=== PATIENT | female | born 1995 | race Caucasian/White ===

== ENCOUNTER 2017-04-21 00:47 | Inpatient (IN) ==
[2017-04-21] MEDS ORDERED: levETIRAcetam 1,000 MG in 0.9 % Sodium Chloride 100 ML IVPB ONE (00:59)
[2017-04-21] MEDS ORDERED: 0.9 % Sodium Chloride 1,000 ML IVC ONE (00:59)
--- NOTE | 2017-04-21 01:03 | Emergency Department Note ---
Disposition Clinical Impression: Seizures, Jose's paralysis (postepileptic) Disposition: Admitted As Inpatient Condition: Undetermined Referrals: Andria Alvarado CNP [Primary Care Provider] - Forms: ED Satisfaction Letter Time of Disposition: 03:59 Neuro HPI - General Chief Complaint: ED Neuro Symptoms/Deficit Stated Complaint: right arm/leg sensation loss Time Seen by Provider: 04/21/17 00:52 Source: patient Mode of arrival: wheelchair Limitations: no limitations Nursing Notes Reviewed: Yes Vital Signs Reviewed: Yes - History of Present Illness HPI Narrative: 21-year-old female with history of seizures and previous right upper extremity numbness associated with the seizures arrives to [facility] emergency department after experiencing 2 seizures while watching a movie just prior to arrival. The patient's significant other states they were tonic in nature without any biting of tongue or urinating on herself. The patient's significant other states it lasted roughly 30 seconds to 2 minutes is unsure. The patient has had in the past and states that she has been experiencing right upper extremity numbness and tingling with seizures in the past but states that her right lower extremity is worse and it had been in the past. The patient denies any other complaints at this time other than right upper extremity and right lower extremity numbness, tingling and difficulty with movement. Patient denies any headache, fevers, chills, abdominal pain, or any other complaints at this time. Onset of Symptoms Date: 04/21/17 Location: right arm, right leg History of same: Yes Quality: weakness, numbness Symptoms Improving: Yes Improves with: time Worsens with: none Context: sudden onset (after seizure) On Anticoagulants: No Associated symptoms: Reports: denies other symptoms Treatments Prior to Arrival: none - Related Data Home Medications: Previous Rx's Medication Instructions Recorded Acetaminophen [Tylenol] 325 mg PO Q6HR PRN #10 tablet 07/01/15 Clindamycin [Cleocin] 150 mg PO Q6HR #8 capsule 12/03/15 Hydrocodone/Acetaminophen [[place] 1 tab PO Q6H PRN #20 tab 12/03/15 5-325 Tablet] Meloxicam [Mobic] 7.5 mg PO DAILY #15 tablet 03/07/16 traMADol [Ultram] 50 mg PO TID #6 tablet 03/31/16 Ciprofloxacin [Cipro] 500 mg PO BID #6 tablet 05/07/16 Azithromycin [Azithromycin 6-Tab 250 mg PO PER PKG DI #6 tab 06/05/16 Pack] Benzonatate [Tessalon] 100 mg PO TID #15 capsule 06/05/16 Ibuprofen [Motrin] 400 mg PO Q6HR #30 tablet 02/14/17 Allergies/Adverse Reactions: Allergies Allergy/AdvReac Type Severity Reaction Status Date / Time No Known Allergies Allergy Verified 04/09/17 22:47 All systems ED: reviewed and negative except as stated. Constitutional: Denies: fever, chills Eyes: Denies: vision change ENT ED: Denies: dental pain, hearing loss Cardiovascular: Denies: chest pain Respiratory: Denies: dyspnea Gastrointestinal: Denies: abdominal pain Genitourinary: Denies: urgency, dysuria Musculoskeletal: Denies: back pain, neck pain, arthralgia, myalgia Integumentary: Denies: rash, lesions Neurological: Reports: weakness, numbness, paresthesias. Denies: headache, confusion, vertigo Past Medical History - Past Medical History Attestation: Yes The following information was validated with the patient. 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 - Social History Smoking Status: Current every day smoker Smokeless Tobacco Status: No Alcohol use: Reports: none Drug use: Reports: none Physical Exam - General Limitations: no limitations General appearance: alert, in no apparent distress - Head Head exam: atraumatic, normocephalic, normal inspection - Eye Eye exam: Present: normal appearance, PERRL, EOMI - ENT ENT exam: normal exam, normal oropharynx, mucous membranes moist - Neck Neck exam: Present: normal inspection, full ROM, trachea midline - Chest Chest inspection: Present: normal inspection, symmetric chest wall rise - Respiratory Respiratory exam: Present: normal lung sounds bilaterally - Cardiovascular Cardiovascular exam: Present: regular rate, normal rhythm, normal heart sounds - Abdominal Exam Abdominal exam: Present: soft, Non-Tender. Absent: tenderness, distention, guarding, rebound, rigidity - Extremities Exam Extremities exam: Present: normal inspection. Absent: tenderness - Neurological Exam Neurological exam: Present: alert, oriented X3, CN II-XII intact - Expanded Neurological Exam Patient oriented to: Present: person, place, time Speech: Present: fluid speech Cranial nerves: EOM function (II, III, IV, ): Normal, facial sensation (V): Normal, facial palsy (VII): Normal Motor strength - LUE: 5/5 Motor strength - RUE: 1/5 Motor strength - LLE: 5/5 Motor strength - RLE: 1/5 Sensory exam upper extremity: light touch: Abnormal Right Sensory exam lower extremity: light touch: Abnormal Right Coma Scale Eye Opening: Spontaneous Coma Scale Motor Response: Obeys Commands Coma Scale Verbal Response: Oriented Coma Scale Total: 15 Course - Consultations Consultation #1: Spoke to Dr. Clemente in neurology who recommended that the patient receive an MRI and EEG inpatient. He will agree to consult. No further recommendations given time. Time: 02:38 Vital Signs Temperature 97.4 F L 04/21/17 00:48 Pulse Rate 70 04/21/17 00:48 Respiratory Rate 18 04/21/17 00:48 Blood Pressure 115/77 04/21/17 00:48 O2 Sat by Pulse Oximetry 97 04/21/17 00:48 Temperature 97.4 F L 04/21/17 00:48 Pulse Rate 69 04/21/17 03:32 Respiratory Rate 16 04/21/17 03:32 Blood Pressure 90/59 04/21/17 03:32 O2 Sat by Pulse Oximetry 97 04/21/17 03:32 Oxygen Delivery Oxygen Delivery Room Air Neuro Symptoms/Deficit - MDM Narrative Medical decision making narrative: Workup here in the emergency department demonstrates no acute process. The patient has now experienced 5 seizures since the episode started just prior to arrival. The patient has required 4 mg of IV Ativan. 1 g of Keppra loading dose was administered to the patient. We will admit the patient to the hospitalist for further workup and care. We will consult neurology with recommendations of inpatient MRI and EEG. The patient will be admitted to the hospitalist, accepted by Dr. Rosales. - Lab Data Lab results reviewed: Yes I reviewed the patient's lab results. Result diagrams: 04/21/17 01:05 04/21/17 01:05 Lab Results 04/21/17 04/21/17 Range/Units 01:05 01:05 WBC 10.6 (4.3-11.1) K/mcL RBC 4.60 (3.82-4.97) M/mcL Hgb 13.8 (11.5-15.4) g/dL Hct 41.2 (35.3-44.9) % MCV 89.6 (83.0-100.0) fL MCH 30.0 (28.0-33.3) pg MCHC 33.5 (31.6-35.5) g/dL RDW 12.3 (11.5-14.5) % Plt Count 302 (140-400) K/mcL MPV 9.7 (9.4-12.4) fL Immature Gran % 0.5 (0-4) % Seg Neutrophils % 57.8 % Lymphocytes % 28.7 % Monocytes % 10.2 % Eosinophils % 2.3 % Basophils % 0.5 % Neutrophils # 6.2 (1.6-8.9) K/mcL Lymphocytes # 3.1 (0.6-4.6) K/mcL Monocytes # 1.1 (0.0-1.3) K/mcL Eosinophils # 0.3 (0.0-0.6) K/mcL Basophils # 0.1 (0.0-0.2) K/mcL Sodium 138 (136-145) mEq/L Potassium 4.3 (3.5-4.5) mEq/L Chloride 105 (98-109) mEq/L Carbon Dioxide 26 (19-29) mEq/L BUN 15 (7-20) mg/dL Creatinine 0.72 (0.57-1.11) mg/dL Est GFR ( Amer) > 60 (> 60) Est GFR (Non-Af Amer) > 60 (> 60) BUN/Creatinine Ratio 21 (6-26) Glucose 90 (70-99) mg/dL Calculated Osmolality 286 (280-300) Calcium 9.7 (8.6-10.8) mg/dL - Radiology Data Radiology results reviewed: Yes I reviewed the patient's radiology results. TPA Checklist - LKW: 3-4.5 hrs Add. Warnings/Precautions Patient/family understanding: The patient/family members have been counseled and understood the risk, benefit , and alternatives of treatment.
--- NOTE | 2017-04-21 01:03 | Emergency Department Note ---
START Narrative - START START: I examined this patient and my medical decision-making was reviewed with the emergency medicine resident. I agree with the documented findings, disposition and treatment plan as described except to the extent set forth below. Patient seen with emergency medicine resident Dr. Adam Dominguez, Please see a copy of his note for details of the H&P, ED evaluation, management and disposition. I have independently evaluated the patient and confirmed appropriate portions of the history and physical exam. Briefly: 21 year old female who identifies as male presents with significant other for "seizure". Although no formal diagnosis has been made. Head CT is pending. As well as a loading dose of anticonvulsants. Disposition pending. Patient is currently awake and alert with some mild right-sided weakness likely Jose's paralysis.
[2017-04-21] MEDS ORDERED: *HR* LORazepam 2 MG/ML VIAL ONE ×3 (01:12→19:25)
[2017-04-21 01:13] LABS: Basophils # 0.1 K/mcL (0.0-0.2); Basophils % 0.5 %; Eosinophils # 0.3 K/mcL (0.0-0.6); Eosinophils % 2.3 %; Hematocrit 41.2 % (35.3-44.9); Hemoglobin 13.8 g/dL (11.5-15.4); Immature Granulocytes % 0.5 % (0-4); Lymphocytes # 3.1 K/mcL (0.6-4.6); Lymphocytes % 28.7 %; Mean Corpuscular HGB Conc 33.5 g/dL (31.6-35.5); Mean Corpuscular Volume 89.6 fL (83.0-100.0); Mean Platelet Volume 9.7 fL (9.4-12.4); Monocytes # 1.1 K/mcL (0.0-1.3); Monocytes % 10.2 %; Neutrophils # 6.2 K/mcL (1.6-8.9); Platelet Count 302 K/mcL (140-400); Red Cell Distribution Width 12.3 % (11.5-14.5); Segmented Neutrophils % 57.8 %
[2017-04-21] MEDS ORDERED: *HR* LORazepam 2 MG/ML VIAL IVP ONE ×4 (01:21→04:52)
[2017-04-21 01:27] LABS: BUN/Creatinine Ratio 21 (6-26); Blood Urea Nitrogen 15 mg/dL (7-20); Calcium 9.7 mg/dL (8.6-10.8); Carbon Dioxide 26 mEq/L (19-29); Chloride 105 mEq/L (98-109); Glucose 90 mg/dL (70-99); Osmolality,Calculated 286 (280-300); Potassium 4.3 mEq/L (3.5-4.5); Sodium 138 mEq/L (136-145); eGFR For African Americans > 60 (> 60); eGFR For Non-African Americans > 60 (> 60)
[2017-04-21] MEDS ORDERED: 0.9 % Sodium Chloride 1,000 ML ONE ×2 (04:59→05:08)
--- NOTE | 2017-04-21 05:00 | Internal Med History&Physical ---
Date of Encounter: 04/21/17 Time of Encounter: 05:00 Assessment and Plan (1) Seizures Current visit: Yes Status: Acute Patient with recurrent atypical seizures She describes an aura of generalized numbness prior to seizure activity No post-ictal state witnessed, although ER reports Jose's paralysis, she is moving all extremities during my review There was no tongue biting, no bowel or urinary incontinence Transfer to Partner at bedside is unable to provide much history, attempt to contact patient 's psychiatrist or PCP Hold Psych meds for now Brain MRI without contrast and EEG ordered Neurology eval, per ER, they had informed Dr. Clemente Obtain lactate, Prolactin Electrolytes are stable Obtain Urine toxicology NPO IVF Seizure precautions, Ativan prn yissel, RN instructed to inform MD as well. Due to high doses of ativan received, and risk of airway compromise, patient is high risk and should be transferred to , placed on telemetry Patient is protecting her airway at time of eval (2) Conversion disorder with abnormal movement Current visit: Yes Status: Suspected Suspected, as above Internal Medicine - H&P: HPI Chief complaint: Seizures Admitted From: Home Plans for Post Hospital Care: Home History of present illness: Ms. Kwan is a 21 year old female Patient is seen during rapid response call with her partner at the bedside She was just brought up the floor from the ER She is seizing during evaluation with rolling back of her eyes, tonic clonic movement of her R arm only. She immediately is awake just prior to receiving Ativan IV, and begins to make signs. Her partner is in the room with her. She states the patient is Female but identifies as a male. The partner is unable to state patient's medical history or home meds She states "she usually does the sign language immediately after a seizure". Patient eventually starts speaking and states she has had seizures that has never been worked up When asked about social history, patient denies illicit drug use and states she has had a Left arm tremor "for as long as she knows it". She signals to her partner who shows us on patient's phone that she is on Buspirone, Citalopram and Propanolol. Patient states the propanolol is for "essential tremors" This is her 6th atypical seizure , she had 3 witnessed in the ER and 2 prior to arrival, she is awake inbetween seizures She is hemodynamically stable, vitals are stable, she is protecting her airway CBC and Chem are normal Head CT is normal Past Med Surg Social Fam HX - Past Medical History Medical history: kidney stones, seizures, other Psychiatric history: anxiety, depression, panic disorder - Past Surgical History Surgical History: other - Social History Smoking Status: Current every day smoker Smokeless Tobacco Status: No Alcohol use: none Drug use: none Internal Medicine - H&P: Meds Acetaminophen [Tylenol] 325 mg PO Q6HR PRN #10 tablet 07/01/15 [Rx] Clindamycin [Cleocin] 150 mg PO Q6HR #8 capsule 12/03/15 [Rx] Hydrocodone/Acetaminophen [[place] 5-325 Tablet] 1 tab PO Q6H PRN #20 tab [Rx] Meloxicam [Mobic] 7.5 mg PO DAILY #15 tablet 03/07/16 [Rx] traMADol [Ultram] 50 mg PO TID #6 tablet 03/31/16 [Rx] Ciprofloxacin [Cipro] 500 mg PO BID #6 tablet 05/07/16 [Rx] Azithromycin [Azithromycin 6-Tab Pack] 250 mg PO PER PKG DI #6 tab 06/05/16 [Rx] Benzonatate [Tessalon] 100 mg PO TID #15 capsule 06/05/16 [Rx] Ibuprofen [Motrin] 400 mg PO Q6HR #30 tablet 02/14/17 [Rx] Buspirone HCl [Buspar] 15 mg PO 04/21/17 [History] Citalopram [CeleXA] 40 mg PO DAILY 04/21/17 [History] Propranolol [Inderal] 60 mg PO 04/21/17 [History] 3 Allergy/AdvReac Type Severity Reaction Status Date / Time No Known Allergies Allergy Verified 04/09/17 22:47 ROS unobtainable: due to mental status (Recurrent seizures) All Systems PM: A 10-system review of systems was performed and is negative for pertinent findings except as documented above in the HPI. - Constitutional Constitutional: as per HPI - EENT Eyes: as per HPI Ears: as per HPI Nose, mouth and throat: as per HPI - Cardiovascular Cardiovascular ROS IM: as per HPI - Respiratory Respiratory: as per HPI - Gastrointestinal Gastrointestinal: as per HPI - Genitourinary Genitourinary: as per HPI - Musculoskeletal Musculoskeletal ROS IM: as per HPI - Integumentary Integumentary IM: as per HPI - Neurological Neurological ROS: as per HPI - Endocrine Endocrine IM: as per HPI - Hematologic/Lymphatic Hematologic/Lymphatic: as per HPI - Constitutional Vitals: Temp Pulse Resp BP Pulse Ox 97.8 F 76 16 102/60 98 04/21/17 04:34 04/21/17 04:18 04/21/17 04:34 04/21/17 04:34 04/21/17 04:18 General appearance: Present: A&O X 3, obese - Head Head exam: Present: atraumatic, normocephalic - Eye Eye exam: Present: PERRL, conjuntiva pink, sclera anicteric Pupils: Present: mydriatic - Neck Neck exam general surgery: Present: supple, trachea midline. Absent: lymphadenopathy - Respiratory Respiratory exam: Present: CTAB. Absent: accessory muscle use, rales, rhonchi, wheezes - Cardiovascular Cardiovascular exam: Present: RRR, +S1, +S2. Absent: diastolic murmur, gallop, rubs, systolic murmur - GI/Abdominal GI/Abdominal exam: Present: normal bowel sounds, soft, no peritoneal signs. Absent: distended, tenderness - Extremities Exam Extremities exam: Present: warm, radial pulses palpable and symmetrical. Absent : calf tenderness, cyanotic, pedal edema - Neurological Exam Neurological exam: Present: alert, CN II-XII intact, oriented X3, no focal deficits. Absent: pronater drift, facial droop, speech deficit - Skin Skin exam: Present: dry, intact Internal Med - H&P Results - Labs CBC & Chem 7: 04/21/17 01:05 04/21/17 01:05
[2017-04-21] MEDS ORDERED: Naloxone 0.4 MG/ML INJ IVP PRN (05:08)
[2017-04-21] MEDS: 0.9 % Sodium Chloride 1,000 ML IVC SCH ×2 (05:40→18:59)
[2017-04-21] MEDS: *HR* LORazepam 2 MG/ML VIAL IVP PRN ×2 (10:09→18:24)
[2017-04-21] MEDS ORDERED: levETIRAcetam 1,000 MG in 0.9 % Sodium Chloride 100 ML IVPB STA (10:43)
[2017-04-21] MEDS ORDERED: *HR* LORazepam 2 MG/ML VIAL IVP PRN ×2 (10:45→18:54)
--- NOTE | 2017-04-21 11:05 | Event Note ---
<Yoni Kline - Last Filed: 04/21/17 17:11> Date of Encounter: 04/21/17 Time of Encounter: 11:01 Patient sustained initial convulsive seizure at about 1030 this morning and was given one milligram Ativan by nursing; initial seizure resolved within 5 minutes with an additional 5 to 10 minute postictal period. Patient demonstrated AOX3 despite not having full return of function of extremities. Another 20 minutes later, patient had an additional convulsive seizure lasting about 2-5 minutes resolving, again, spontaneously. EEG has been completed and is being read by neurologist at this time. Started patient on 500 mg Keppra IVP BID 1st dose to be given now as well as changed Ativan orders to PRN 4 milligrams with one dose repeat in 5 minutes for episodes of convulsive seizures. 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 Spoke with patient who has significant psychological stressors including recently coming out as homosexual to her parents and moving back and at home with them. Patient is presently acutely depressed and has some history of suicidal ideation , though denies at present having any intent to harm herself. Discussed with patient possibility of seeking psychiatric consultation during inpatient stay and patient is agreeable to this plan. Psych consult requested. <Alfredo Carrillo - Last Filed: 04/21/17 18:06> Date of Encounter: 04/21/17 I examined this patient and my medical decision-making was reviewed with the Resident Physician on 04/21/17. I agree with the documented findings, disposition and treatment plan as described except to the extent set forth below. Ms Kwan has been admitted for acute seizure. 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 Psych has been consulted. Agree with above plan.
--- NOTE | 2017-04-21 12:23 | EEG/EMG/Oth Biometrics Report ---
EEG Procedure Report Date of procedure: 04/21/17 EEG Procedure: Routine EEG Procedure Note: This EEG was acquired with standard international 10-20 system with EKG recording. The background EEG activity was characterized by the presence of low amplitude fast activity throughout the recording. Garage Helper attempted to wake patient up but the background activity appears normal. Sleep stages were not identified during this tracing. There are no electrographic seizures identified during this tracing. There are no epileptiform discharges and focal slowing noted during this recording. Photic stimulation produced and produced no abnormalities. Hyperventilation procedure not performed. EKG tracing showed no significant cardiac dysrhythmia. Impression: This is essentially a normal awake EEG. Please note, during the EEG the patient appeared unresponsive but EEG background activity appears normal with diffuse beta activity. There is no diffuse slowing or suppression that would indicate postictal state. Clinical Correlation: This is essentially a normal awake EEG with no capture of sleep stage. The presence of diffuse extensive beta activity is consistent with medication effects from benzo diazepam or phenobarbital. During the recording the patient appeared unresponsive, however, background EEG activity appears normal. No evidence of postictal suppression or slowing.
--- NOTE | 2017-04-21 12:37 | Neurology - Consult Note ---
Date of Encounter: 04/21/17 Time of Encounter: 12:24 Assessment and Plan (1) Seizures Current Visit: Yes Status: Acute Patient developed right arm paresthesia after being emotionally challenged and developed multiple seizure like activity in the ER. Admitted for seizure work up. Description of recurrent episodes suggest generalized seizure vs non- epileptic events. Description of her convulsion movements and normal EEG suggest non-epileptic events. It was noted that when patient was unresponsive the EEG showed no diffuse slowing or suppression. Multiple convulsion type of seizure activity not associated with tongue biting or urinary incontinence. Patient does have psychological stress per history. 1. Will continue her on Keppra 1000mg q12 IV and change to oral if mental status improve. 2. Await MRI of brain. 3. If seizure continues she may benefit from transfer to [facility] for director long term care EEG monitoring with video. 4. Agree with ativan prn for breakthrough seizure treatment but avoid excessive sedation. 5. 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 6. From neurology perspective the prognosis of psychogenic seizure is unpredictable and antiepileptic therapy would not work. If seizure like activity continues then assisted EEG monitoring will be needed to make correct diagnosis. 7. Continue medical and supportive care. Treatment plan discussed with parents and medical team. History of Present Illness Chief complaint: recurrent seizure like activity HPI: Ms. Kwan is a 21 year old female with PMH significant for anxiety, questionable seizure episode, non diagnosed, who initially was brought to ER, after became upset and complaining of right arm numbness. Patient was observed in the ER 5 seizure episodes although in between the seizure she could remain coherent. she is currently drowsy and history of current illness obtained from parents. Mother states that the patient was upset at home and complained of having right arm numbness that is why she was brought to the hospital. While in the ER she developed a total of 5 seizure episodes and had to be given Ativan IV after that she bacame drowsy and sedated. After bring transferred onto the floor the patient developed two grand mal seizures witnessed by nursing staff. They were described as quite violent convulsions lasting few minutes followed by postictal hypersomnolence. However, no tongue biting or urinary incontinence reported. Per her mother, patient has some questionable seizure episode at age of [age]. Apparently no seizure diagnosis was made. Over the last few years there were few incidences where she was evaluated in the ER due to questionable anxiety vs seizure but apparently she was not given a diagnosis of seizure. One incidence occurred few years ago mother mentioned that the patient was evaluated in the ER for anxiety and right at time she was out of the door she had a seizure. Apparently, she was not considered to have epileptic seizure. mother agrees that she has been under some stress. father mentioned that the patient was recently undergoing sexual identity change but he did not know much about it. At the time of this interview, patient is sleepy but as i was talking to her parents she occasionally turns her head and appeared listening with eye contact , one eye half closed. few minutes later, she has had few jerking movement in her arms while lying in bed with 0.5Hz frequency, not evolving. These motor activity goes on for few seconds and then stop and then recur. The motor activity appears distractable. CT of head showed no acute intracranial abnormality Past Med Surg Social Fam HX - Past Medical History Medical history: kidney stones, seizures, other Psychiatric history: anxiety, depression, panic disorder - Past Surgical History Surgical History: other - Social History Smoking Status: Current every day smoker Smokeless Tobacco Status: No Alcohol use: none Drug use: none Medications and Allergies Buspirone HCl [Buspar] 30 mg PO BID 04/21/17 [History] Citalopram [CeleXA] 40 mg PO DAILY 04/21/17 [History] Propranolol LA (24 HR) [Inderal LA] 60 mg PO DAILY 04/21/17 [History] 3 Allergy/AdvReac Type Severity Reaction Status Date / Time No Known Allergies Allergy Verified 04/09/17 22:47 All Systems: A 10-system review of systems was performed and is negative for pertinent findings except as documented above in the HPI. Physical Examination - Vital Signs Vital Signs: Initial Vital Signs Temp Pulse Resp BP Pulse Ox 97.4 F L 70 18 115/77 97 04/21/17 00:48 04/21/17 00:48 04/21/17 00:48 04/21/17 00:48 04/21/17 00:48 - Constitutional General appearance: comfortable - Neurologic Sensorimotor examination: other (Unable to assess due to change in mental status ) Detailed motor examination: other (Unable to assess due to change in mental status. No obvious weakness seen) Detailed sensory examination: other (Unable to assess due to changed mental status) Posture: other (None. No nuchal rigidity) Reflexes: Biceps: 1+, Triceps: 1+, Brachioradialis: 1+, Patella: 1+, Achilles: 1 + Mental Status Examination: lethargic, opens eyes to voice, makes eye contact ( following only simple commands, appear drowsy currently sedated) Results - Laboratory Findings CBC and BMP: 04/21/17 01:05 04/21/17 01:05 Abnormal lab findings: Abnormal lab results Prolactin 35.21 ng/mL (5.18-26.53) H 04/21/17 05:21 Consult Discharge Plan - Plan Referrals: Andria Alvarado, [employer] [Primary Care Provider] - (SENT WEB REQUEST ON 12-19-16 @ [id number])
[2017-04-21] MEDS: *HR* Heparin 5,000 UNIT/ML VIAL SQ SCH (16:12)
[2017-04-21 23:05] LABS: Amphetamine Screen,Urine Negative ng/mL (Cutoff=1000); Barbiturate Screen,Urine Negative ng/mL (Cutoff=200); Benzodiazepines Screen,Urine Negative ng/mL (Cutoff=200); Cannabinoid Screen,Urine Negative ng/mL (Cutoff = 50); Cocaine Screen,Urine Negative ng/mL (Cutoff= 300); Opiate Screen,Urine Negative ng/mL (Cutoff=300); Phencyclidine Screen,Urine Negative ng/mL (Cutoff=25)
[2017-04-22] MEDS: *HR* Heparin 5,000 UNIT/ML VIAL SQ SCH ×2 (07:47→08:20)
[2017-04-22] MEDS ORDERED: Propranolol LA (24 HR) 60 MG CAP.SA.24H PO SCH (09:00)
--- NOTE | 2017-04-22 09:19 | Internal Med Progress Note ---
Date of Encounter: 04/22/17 Time of Encounter: 08:20 - Assessment and plan (1) Depressive episode Current Visit: Yes Status: Acute (2) Conversion disorder with abnormal movement Current Visit: Yes Status: Suspected (3) Seizures Current Visit: Yes Status: Acute - Time Spent With Patient less than 15 minutes - Subjective Interval history: Continues to have seizure like episodes. Is presently NPO; patient has appetite requests to be fed. Otherwise, patient denies any new symptoms. Nursing states patients significant other was questioning whether or not the symptoms are being raped. Psychiatrists he consulted was introduced yesterday but has yet to be fulfilled; still awaiting psychiatric advice. Patient still denies any present suicidal ideation or plans to harm self. No other concerns or complaints at this time. - Constitutional Vitals: Temp Pulse Resp BP Pulse Ox 97.4 F L 90 16 110/78 98 04/22/17 07:28 04/22/17 08:20 04/22/17 07:28 04/22/17 07:28 04/22/17 08:20 General appearance: Present: A&O X 3, obese Exam: CONSTITUTIONAL: Alert and oriented X3, well-nourished, well appearing, in no apparent distress HEAD: Normocephalic; atraumatic. EYES: PERRL, no scleral icterus. NOSE: The nose is normal in appearance without rhinorrhea RESP: Normal chest excursion with respiration; breath sounds clear and equal bilaterally; no wheezes, rhonchi, or rales CARD: Regular rhythm, without murmurs, rub or gallop ABD: Non-distended; non-tender, soft,without rigidity, rebound or guarding SKIN: Normal for age and race; warm and dry; no apparent lesions PSYCH: alert and oriented, in no apparent distress, no appearance of overt somatization, denies any suicidal ideation, continues to have significant depressive mood, depressed/flat affect Internal Medicine: Result - Labs CBC & Chem 7: 04/21/17 01:05 04/21/17 01:05 Consult Discharge Plan - Plan Referrals: Andria lAvarado CNP [Primary Care Provider] - 05/02/17 10:00 am () Josue Clemente MD [Partnered Physician] - 05/10/17 1:00 pm
[2017-04-22 11:57] VITALS: BP 117/77
--- NOTE | 2017-04-22 12:06 | Discharge Summary ---
<Yoni Kline - Last Filed: 04/22/17 18:28> Date of Encounter: 04/22/17 Time of Encounter: 08:00 - Discharge Diagnosis (1) Depressive episode Priority: Primary Status: Acute (2) Conversion disorder with abnormal movement Priority: Secondary Status: Suspected (3) Seizures Priority: Secondary Status: Acute - Discharge Medications Home Medications: Propranolol LA (24 HR) [Inderal LA] 60 mg PO DAILY 04/21/17 [History] Buspirone HCl [Buspar] 10 mg PO TID tablet 04/22/17 [Rx] FLUoxetine HCl [Prozac] 20 mg PO DAILY capsule 04/22/17 [Rx] LORazepam [Ativan] 4 mg IVP Q15MIN PRN vial 04/22/17 [Rx] Allergies/Adverse Reactions: 3 Allergy/AdvReac Type Severity Reaction Status Date / Time No Known Allergies Allergy Verified 04/09/17 22:47 Date of admission: 04/21/17 11:53 Primary care physician: Andria Alvarado CNP Consults: 04/21/17 13:56 Consult to Psychiatry [CONS] Routine Consulting Provider: Psychiatry Elvi Reason for Consult: possible psychogenic seizure; anx/dep 2/2 recent social contributors Time Notified: 13:57 Call Completed: Yes Discharging clinician: Yoni Kline Anticipated date of discharge: 04/22/17 - Patient Status Disposition: Transfer Other Condition: Fair Functional capacity at discharge: independent ambulation Overall status at discharge: patient is not back to baseline - Discharge Instructions Instructions: Epilepsy (DC), Non-epileptic Seizures (DC) Follow Up With: Andria Alvarado CNP [Primary Care Provider] - 05/02/17 10:00 am () Josue Clemente MD [Partnered Physician] - 05/10/17 1:00 pm - Diet and Activity Activity: other Diet: regular diet Interval History: Continues to have seizure like episodes. Is presently NPO; patient has appetite requests to be fed. Otherwise, patient denies any new symptoms. Nursing states patients significant other was questioning whether or not the symptoms are being raped. Psychiatrists he consulted was introduced yesterday but has yet to be fulfilled; still awaiting psychiatric advice. Patient still denies any present suicidal ideation or plans to harm self. No other concerns or complaints at this time. Hospital course: Ms. Kwan is a 21 year old female admitted via emergency department for recurrent convulsive seizures; patient has no significant history of seizures disorder, certainly no ongoing diagnosis of epilepsy treated with any medications. Patient was admitted to step down unit, EEG was completed, neurology consult was obtained, patient was begun on PRN Ativan's as well as IV Keppra. Based on these evaluations, initial neurologist was more concerned about its possibility of psychogenic seizures due to social stressors; specifically, EEG was normal while tech was noting some concurring spastic motions and patient. Patient did elaborate on several highly stressful social factors, including coming out as homosexual to her parents and moving back home , which are contributing to her current levels of anxiety and depression; patient denies any current suicidal ideation low does have a history of suicidal thoughts. Psychiatry consult was requested, and recommends d/c of celexa with change to buspar and prozac. Patient has had stable vitals throughout course with episodic tachycardia that resolves within minutes. Patient does have occasional jerking of the limbs which is inconsistently localized, as well as eyelid drooping & bilateral ocular deviation; these particular symptoms seem to be concurrent with time periods when she has many visitors. No other symptoms or complaints at this time. Despite uncertain etiology of acute episodes, patient is in stable condition and is a perfectly sound candidate for transfer between facilities. - Time Spent with Patient Total time spent providing and/or coordinating discharge services: Less than 30 minutes - Constitutional Vitals: Temp Pulse Resp BP Pulse Ox 97.6 F 82 18 117/77 98 04/22/17 11:56 04/22/17 11:56 04/22/17 11:56 04/22/17 11:56 04/22/17 11:56 General appearance: Present: A&O X 3, obese Exam: CONSTITUTIONAL: Alert and oriented X3, well-nourished, well appearing, in no apparent distress HEAD: Normocephalic; atraumatic. EYES: PERRL, no scleral icterus. NOSE: The nose is normal in appearance without rhinorrhea RESP: Normal chest excursion with respiration; breath sounds clear and equal bilaterally; no wheezes, rhonchi, or rales CARD: Regular rhythm, without murmurs, rub or gallop ABD: Non-distended; non-tender, soft,without rigidity, rebound or guarding SKIN: Normal for age and race; warm and dry; no apparent lesions Neuro: no acute episodes of seizure like activity, Limited twitching, ocular deviation, or limb weakness on initial encounter <Alfredo Carrillo - Last Filed: 04/22/17 18:42> Date of Encounter: 04/22/17 - Discharge Diagnosis (1) Conversion disorder with abnormal movement Priority: Primary Status: Suspected (2) Seizures Status: Acute (3) Depressive episode Status: Acute Date of admission: 04/21/17 11:53 Primary care physician: Andria Alvarado CNP Consults: 04/21/17 13:56 Consult to Psychiatry [CONS] Routine Consulting Provider: Psychiatry Elvi Reason for Consult: possible psychogenic seizure; anx/dep 2/2 recent social contributors Time Notified: 13:57 Call Completed: Yes Hospital course: Ms. Kwan is a 21 year old female - Time Spent with Patient Total time spent providing and/or coordinating discharge services: 40min - Constitutional Vitals: Temp Pulse Resp BP Pulse Ox 97.6 F 94 18 117/77 98 04/22/17 11:56 04/22/17 12:24 04/22/17 11:56 04/22/17 11:56 04/22/17 11:56 - Attending Attestation I examined this patient and my medical decision-making was reviewed with the Resident Physician on 04/22/17. I agree with the documented findings, disposition and treatment plan as described except to the extent set forth below. Ms Kwan has been admitted for possible seizure versus psychogenic seizure. She continues to have episodes despite treatment. She will be transferred to [facility] for EMU monitoring. Exam Alert. Comfortable Heart reg No wheeze Plan D/C to [facility] for EMU.
--- NOTE | 2017-04-22 12:15 | Neurology Progress Note ---
Date of Encounter: 04/22/17 Time of Encounter: 09:50 Assessment and Plan (1) Seizures Current Visit: Yes Status: Acute This patient will continue to have these multiple spells which looked like seizure type of activity without much postictal state neither had any typical presentations at the same time so far workup has been negative including MRI of the brain as well as EEG. She is already on Keppra and has received multiple doses of IV Ativan. At this time seems like there is a lot of other psychosocial concerns and is a highly suspicious that these seizures are perhaps more pseudoseizures than the true epileptic seizure I would recommend video EEG monitoring to clarify this diagnosis at the same time she may benefit from psychological evaluation, but the possibility of any conversion disorder and to look for any underlying causes of these spells that she continued to experience despite being on medication. I have discussed with the patient mother was at the bedside as well as with the patient with a possibly of long-term video EEG monitoring to clarify her diagnosis and other treatment options. They all seems to be agreeable with the plan. Also discussed with the primary team Subjective Interval history: Patient is seen as an follow-up she was evaluated by Dr. Clemente earlier, with a question of seizure disorder as patient was admitted multiple spells with a concern of generalized tonic-clonic seizure. Patient was admitted to the emergency room because of questionable seizure episode, complaining of right arm numbness. Patient was observed in the ER 5 seizure episodes although in between the seizure she could remain coherent. Patient has multiple episodes while in the hospital all of them are associated with jerking and shaking without any tongue bite or any urinary incontinence she has received multiple doses of IV Ativan and was also started on the Keppra but continued to have these multiple spells without much postictal state. As a workup she had an MRI of the brain which did not show any acute abnormality and was completely normal and at the same time EEG also did not show any evidence of seizure activity despite having multiple seizure-like activity before the EEG. Patient is currently alert and awake laying in the bed and had few spells this morning Objective - Constitutional Vitals: Temp Pulse Resp BP Pulse Ox 97.6 F 82 18 117/77 98 04/22/17 11:56 04/22/17 11:56 04/22/17 11:56 04/22/17 11:56 04/22/17 11:56 - Neurological Exam Sensorimotor examination: Present: other (Unable to assess due to change in mental status) Motor Examination: Present: grossly full strength in all extremities (Patient is laying down in the bed with her partner, alert awake and oriented without any focal motor deficit), other (Unable to assess due to change in mental status. No obvious weakness seen) Sensation intact: Present: other (Unable to assess due to changed mental status) Posture: Present: other (None. No nuchal rigidity) Mental Status Examination: Present: lethargic, opens eyes to voice, makes eye contact (following only simple commands, appear drowsy currently sedated) Results - Laboratory Findings CBC and BMP: 04/21/17 01:05 04/21/17 01:05 Abnormal lab findings: Abnormal lab results Prolactin 35.21 ng/mL (5.18-26.53) H 04/21/17 05:21 Consult Discharge Plan - Plan Referrals: Andria Alvarado CNP [Primary Care Provider] - 05/02/17 10:00 am () Josue Clemente MD [Partnered Physician] - 05/10/17 1:00 pm
--- NOTE | 2017-04-22 13:12 | Consult Note ---
Date of Encounter: 04/22/17 Time of Encounter: 01:10 Assessment & Recommendation (1) Conversion disorder with abnormal movement Current visit: Yes Status: Suspected Assessment & Recommendation: I met with both patient and her mother and address ongoing challenges and issues. Both mother and patient seems to understand the nature of the disease and the triggering and contribution factors. Patient already has an appointment with a therapist on may I strongly encouraged her to continue to work through her problems with therapy since these symptoms will be better addressed with outpatient therapy. I recommend continuing patient's BuSpar and propranolol for anxiety. I will discontinue Celexa and recommend starting patient on Prozac 20 mg for her depression since patient has been taking Celexa for a while without much improvement. (2) Depressive episode Current visit: Yes Status: Acute Assessment & Recommendation: Will discontinue Celexa and start the patient on Prozac 20 mg daily for her depression. At this point in point in time patient is denying any suicidal ideations and is not posing a threat to herself and does not need any inpatient psychiatric hospitalization or treatment. History of Present Illness Patient: new to practice Requesting Physician: Alfredo Carrillo DO Reason for consult: seizure like activity History of present illness: Ms. Kwan is a 21 year old female who was admitted on the Medr floor for seizure-like activity. The neurology has assessed patient and rule out with a reasonable degree of certainty that her seizure-like activity and does not seem to have an organic reason. Psych consult is given to rule out conversion disorder. During the interview patient does endorse significant challenges and stressors in her life. She reported that she lost her brother 6 months ago due to medical problems. She reported that she moved out of the house and stayed in a lesbian relationship with her partner for a month and then moved back and is currently staying with her mother. She came out to her family as a transgender couple of months ago. Patient reported that her family is very conservative and Shinto and does not approve of her lifestyle which is contributing a significant stress for her. She also reported that she was working for 1-1/2 year at [employer] and lost her job and has no source of income which is also contributing to her stressors. I also spoke with the mother who reported that patient has been facing a lot of challenges and stressors. Patient does have a limited intellectual capacity which also contributed to a lot of her difficulties to process and work through her stressors. She does report that she was bullied in school all her life. She has been receiving treatment for anxiety and depression and has been prescribed Celexa and BuSpar and propranolol but without much benefit. She is denying any suicidal or homicidal ideations or any overt psychotic or manic symptoms. CC: Alfredo Carrillo, DO Past Med Surg Social Fam HX - Past Medical History Medical history: kidney stones, seizures, other - Past Psychiatric History Psychiatric history: Reports: depression Past psychiatric history details: Patient has no prior psychiatric hospitalizations. She has been receiving treatment for depression and outpatient and has been prescribed Celexa and BuSpar and propranolol. She is scheduled to see her outpatient provider on May 08. Family psychiatric history: No Family History of Suicide: None - Past Surgical History Surgical History: other - Social History Smoking Status: Current every day smoker Smokeless Tobacco Status: No Alcohol use: none Drug use: none Occupational status: unemployed Current living situation: Home, With Family Activity Level: Independent ambulation Recent Out of Country Travel Within the Last 8 Weeks: No Exposure or Possible Exposure to Illness During Travel: No Additional social history: Patient was born and raised in [place]. He reported difficult childhood. She was bullied in school because of being a slow learner. She graduated high school and was in special ed classes. Currently she is residing with her family.. She is single and has no children but is in a lesbian relationship. She denies any legal issues. Medications & Allergies Buspirone HCl [Buspar] 30 mg PO BID 04/21/17 [History] Citalopram [CeleXA] 40 mg PO DAILY 04/21/17 [History] Propranolol LA (24 HR) [Inderal LA] 60 mg PO DAILY 04/21/17 [History] 3 Allergy/AdvReac Type Severity Reaction Status Date / Time No Known Allergies Allergy Verified 04/09/17 22:47 Review of Systems Psychiatric: Reports: depression, anxiety Mental Status Exam Patient orientation: Yes Person, Yes Time, Yes Place Level of alertness: Alert Patient appearance: Appropriate, Well Groomed Behavior: calm, cooperative Psychomotor activity: Normal Eye contact: Maintains Eye Contact Mood description: Depressed, Anxious Affect description: constricted, dysphoric Speech pattern: Normal rate, Normal rhythm, Normal tone Speech volume: Normal Thought process: Linear, Goal Oriented Thought content: No Suicidal ideation, No Homicidal ideation, No Overt delusions Perceptual disturbances: No Auditory hallucinations, No Visual hallucinations Attention span: Capable of Focused Attention Memory description: Grossly Intact Patient reliability: Reliable Historian Intelligence estimate: Below Average Judgment: Fair Insight: Partial Results - Vital Signs Vital signs: Temp Pulse Resp BP Pulse Ox 97.6 F 94 18 117/77 98 04/22/17 11:56 04/22/17 12:24 04/22/17 11:56 04/22/17 11:56 04/22/17 11:56 - Drug Levels and Toxicology Drug Levels and Toxicology: Drug Levels and Toxicity 04/21/17 22:20 Urine Opiates Screen Negative Ur Barbiturates Screen Negative Ur Phencyclidine Scrn Negative Ur Amphetamines Screen Negative U Benzodiazepines Scrn Negative Urine Cocaine Screen Negative U Marijuana (THC) Screen Negative - Labs Labs: Laboratory Last Values WBC 10.6 K/mcL (4.3-11.1) 04/21/17 01:05 RBC 4.60 M/mcL (3.82-4.97) 04/21/17 01:05 Hgb 13.8 g/dL (11.5-15.4) 04/21/17 01:05 Hct 41.2 % (35.3-44.9) 04/21/17 01:05 MCV 89.6 fL (83.0-100.0) 04/21/17 01:05 MCH 30.0 pg (28.0-33.3) 04/21/17 01:05 MCHC 33.5 g/dL (31.6-35.5) 04/21/17 01:05 RDW 12.3 % (11.5-14.5) 04/21/17 01:05 Plt Count 302 K/mcL (140-400) 04/21/17 01:05 MPV 9.7 fL (9.4-12.4) 04/21/17 01:05 Immature Gran % 0.5 % (0-4) 04/21/17 01:05 Seg Neutrophils % 57.8 % 04/21/17 01:05 Lymphocytes % 28.7 % 04/21/17 01:05 Monocytes % 10.2 % 04/21/17 01:05 Eosinophils % 2.3 % 04/21/17 01:05 Basophils % 0.5 % 04/21/17 01:05 Neutrophils # 6.2 K/mcL (1.6-8.9) 04/21/17 01:05 Lymphocytes # 3.1 K/mcL (0.6-4.6) 04/21/17 01:05 Monocytes # 1.1 K/mcL (0.0-1.3) 04/21/17 01:05 Eosinophils # 0.3 K/mcL (0.0-0.6) 04/21/17 01:05 Basophils # 0.1 K/mcL (0.0-0.2) 04/21/17 01:05 Sodium 138 mEq/L (136-145) 04/21/17 01:05 Potassium 4.3 mEq/L (3.5-4.5) 04/21/17 01:05 Chloride 105 mEq/L (98-109) 04/21/17 01:05 Carbon Dioxide 26 mEq/L (19-29) 04/21/17 01:05 BUN 15 mg/dL (7-20) 04/21/17 01:05 Creatinine 0.72 mg/dL (0.57-1.11) 04/21/17 01:05 Est GFR ( Amer) > 60 (> 60) 04/21/17 01:05 Est GFR (Non-Af Amer) > 60 (> 60) 04/21/17 01:05 BUN/Creatinine Ratio 21 (6-26) 04/21/17 01:05 Glucose 90 mg/dL (70-99) 04/21/17 01:05 POC Glucose 81 (58-89) 04/22/17 00:39 Calculated Osmolality 286 (280-300) 04/21/17 01:05 Lactic Acid 1.2 mmol/L (0.5-2.2) 04/21/17 05:21 Calcium 9.7 mg/dL (8.6-10.8) 04/21/17 01:05 Prolactin 35.21 ng/mL (5.18-26.53) H 04/21/17 05:21 Urine Opiates Screen Negative ng/mL (Umjmgn=663) 04/21/17 22:20 Ur Barbiturates Screen Negative ng/mL (Orkviu=731) 04/21/17 22:20 Ur Phencyclidine Scrn Negative ng/mL (Cutoff=25) 04/21/17 22:20 Ur Amphetamines Screen Negative ng/mL (Gxjmtu=8678) 04/21/17 22:20 U Benzodiazepines Scrn Negative ng/mL (Iwtlcn=434) 04/21/17 22:20 Urine Cocaine Screen Negative ng/mL (Cutoff= 300) 04/21/17 22:20 U Marijuana (THC) Screen Negative ng/mL (Cutoff = 50) 04/21/17 22:20 Consult Discharge Plan - Plan Referrals: Andria Alvarado CNP [Primary Care Provider] - 05/02/17 10:00 am () Josue Clemente MD [Partnered Physician] - 05/10/17 1:00 pm
[2017-04-23] MEDS ORDERED: FLUoxetine HCl 10 MG CAPSULE PO SCH (09:00)
== END 2017-04-22 14:40 | disposition other institution (70) | DRG 101 ==
LOC: 3BNU 00:47 → EMEROO 00:47 → SUATTDRO 04:21 → 3BNU 04:36 → 2NNU 05:37
PROVIDERS: ADMIT Registered Nurse; ATTEND Internal Medicine